=== PATIENT | female | born 1955 | race Caucasian/White ===

== ENCOUNTER 2017-07-04 11:05 | Emergency (ER) | payer BC ==
[~2017-07-04] VITALS: Ht 160 cm; Wt 72.0 kg
[2017-07-04 11:17] VITALS: BP 168/95; PULSE 81; RESP 17; TEMP 98.2
[2017-07-04 14:23] VITALS: BP 146/72; PULSE 81; RESP 18; O2SAT 98
--- NOTE | 2017-07-04 14:43 | PD ---
HPI Chief Complaint: Neuro Symptoms/ Deficits Time Seen by Provider: 14:16 Travel History International Travel<30 days: No Contact w/Intl Traveler<30days: No Traveled to known affect area: No History of Present Illness HPI The patient was seen and examined in the presence of the nurse. Patient complains of a room spinning dizziness that occurs when she moves her head in either direction. Started last night. She also complains of posterior headache. No injury or thunderclap onset. No fever. She woke up this morning and the dizziness was still present. She went to [facility]. She had a negative CT of the brain. She says that they were going to hospitalized her for her dizziness and she decided she would rather come here instead. So she signed out AGAINST MEDICAL ADVICE. Symptom severity is moderate. Duration one day. No alleviating factors. No exacerbating factors. PFSH Past Medical History Anxiety: Yes Depression: Yes Hypertension: Yes Influenza Vaccination: No ?: Not Past Surgical History Eye Surgery: Yes (CATARACT) Social History Alcohol Use: Yes (OCCASIONALLY) Tobacco Use: No Substance Use: No Allergies-Medications (Allergen,Severity, Reaction): Coded Allergies: Penicillins (Verified Allergy, Severe, HIVES, 07/04/17) Review of Systems General / Constitutional: No: Fever Eyes: No: Visual changes HENT: Positive: Headaches, Vertigo Cardiovascular: No: Chest Pain or Discomfort Respiratory: No: Shortness of Breath Gastrointestinal: No: Abdominal Pain Genitourinary: No: Dysuria Musculoskeletal: No: Pain Skin: No Rash Neurologic: Positive: Dizziness, Headache, No: Weakness Psychiatric: No: Depression Endocrine: No: Polydipsia Hematologic/Lymphatic: No: Easy Bruising Physical Exam Narrative GENERAL: Well-nourished, well-developed patient in no apparent distress. SKIN: Focused skin assessment reveals no rash and nodules. Skin is Warm and dry. HEAD: Atraumatic. Normocephalic. EYES: Pupils equal and round. No scleral icterus. No injection or drainage. ENT: No nasal bleeding or discharge. Mucous membranes pink and moist. NECK: Trachea midline. No JVD. CARDIOVASCULAR: Regular rate and rhythm. No murmur appreciated. RESPIRATORY: No accessory muscle use. Clear to auscultation. Breath sounds equal bilaterally. GASTROINTESTINAL: Abdomen soft, non-tender, nondistended. Hepatic and splenic margins not palpable. MUSCULOSKELETAL: No obvious deformities. No clubbing. No cyanosis. No edema. NEUROLOGICAL: Awake and alert. No obvious cranial nerve deficits. Motor grossly within normal limits. Normal speech. PSYCHIATRIC: Appropriate mood and affect; insight and judgment normal. Data Data Last Documented VS Vital Signs Date Time Temp Pulse Resp B/P (MAP) Pulse Ox O2 Delivery O2 Flow Rate FiO2 07/04/17 14:23 81 18 146/72 (96) 98 Room Air 07/04/17 11:17 98.2 Orders Orders Mri Brain W/O Contrast (07/04/17 ) Complete Blood Count With Diff (07/04/17 14:36) Basic Metabolic Panel (Bmp) (07/04/17 14:36) Electrocardiogram (07/04/17 ) Meclizine (Antivert) (07/04/17 14:45) Ibuprofen (Motrin) (07/04/17 17:30) Labs Laboratory Tests Test 07/04/17 14:54 White Blood Count 4.0 TH/MM3 Red Blood Count 4.72 MIL/MM3 Hemoglobin 15.4 GM/DL Hematocrit 44.9 % Mean Corpuscular Volume 95.0 FL Mean Corpuscular Hemoglobin 32.6 PG Mean Corpuscular Hemoglobin Concent 34.3 % Red Cell Distribution Width 13.2 % Platelet Count 199 TH/MM3 Mean Platelet Volume 8.6 FL Neutrophils (%) (Auto) 74.7 % Lymphocytes (%) (Auto) 18.1 % Monocytes (%) (Auto) 6.0 % Eosinophils (%) (Auto) 0.6 % Basophils (%) (Auto) 0.6 % Neutrophils # (Auto) 3.0 TH/MM3 Lymphocytes # (Auto) 0.7 TH/MM3 Monocytes # (Auto) 0.2 TH/MM3 Eosinophils # (Auto) 0.0 TH/MM3 Basophils # (Auto) 0.0 TH/MM3 CBC Comment DIFF FINAL Differential Comment Blood Urea Nitrogen 10 MG/DL Creatinine 0.58 MG/DL Random Glucose 98 MG/DL Calcium Level 8.7 MG/DL Sodium Level 143 MEQ/L Potassium Level 3.9 MEQ/L Chloride Level 109 MEQ/L Carbon Dioxide Level 24.5 MEQ/L Anion Gap 10 MEQ/L Estimat Glomerular Filtration Rate 106 ML/MIN [facility] [place] Medical Decision Making Medical Screen Exam Complete: Yes Emergency Medical Condition: Yes Medical Record Reviewed: Yes Differential Diagnosis Positional vertigo, cerebellar stroke, brain tumor Narrative Course I have reviewed the patient's electronic medical record. Reviewed her CT results from this morning which was negative I do not see any objective neurologic deficit. Gave her dose of meclizine Labs sent I have ordered brain MRI to rule out cerebellar stroke or brain tumor Labs are normal MRI is reviewed with her. There is no stroke or tumor. There is punctate white dots of unclear significance. I recommended that she discuss this with her physician and suggested neurology follow-up as well I do not think hospitalization would be helpful at this point. Instructed use meclizine as needed Diagnosis Primary Impression: Benign positional vertigo Qualified Codes: H81.10 - Benign paroxysmal vertigo, unspecified ear Additional Impression: Headache Qualified Codes: R51 - Headache Additional Instructions: Follow-up with primary care and neurology Discussed her MRI results Change positions slowly Consider meclizine which is [id number] Med/Other Pt SpecificInfo: Other Disposition: 01 DISCHARGE HOME Condition: Stable Raad May MD July 04, 2017 14:43
[2017-07-04] MEDS ORDERED: MECLIZINE HCL 25 MG TAB PO ONE (14:45)
[2017-07-04 15:26] LABS: BASOPHIL % 0.6 % (0.0-2.0); EOSINOPHIL % 0.6 % (0.0-4.0); HEMATOCRIT 44.9 % (35.0-46.0); HEMOGLOBIN 15.4 GM/DL (11.6-15.3); LYMPH % 18.1 % (9.0-44.0); LYMPHOCYTE # 0.7 TH/MM3 (1.0-4.8); MEAN CORPUSCULAR HEMOGLOBIN 32.6 PG (27.0-34.0); MEAN CORPUSCULAR HGB CONC 34.3 % (32.0-36.0); MEAN PLATELET VOLUME 8.6 FL (7.0-11.0); MONOCYTE # 0.2 TH/MM3 (0-0.9); NEUT % 74.7 % (16.0-70.0); PLATELET COUNT 199 TH/MM3 (150-450); RED BLOOD COUNT 4.72 MIL/MM3 (4.00-5.30); RED CELL DISTRIBUTION WIDTH 13.2 % (11.6-17.2)
[2017-07-04 15:56] LABS: BICARBONATE 24.5 MEQ/L (21.0-32.0); CALCIUM 8.7 MG/DL (8.5-10.1); CREATININE 0.58 MG/DL (0.50-1.00)
--- NOTE | 2017-07-04 16:14 | RADRPT ---
EXAM DATE/TIME: 07/04/2017 15:52 [place] COMPARISON: No previous studies available for comparison. INDICATIONS : CVA. Vertigo. MEDICAL HISTORY : Hypertension. SURGICAL HISTORY : Cataract. ENCOUNTER: Initial ACUITY: 2 day PAIN SCORE: 0/10 LOCATION: head TECHNIQUE: Multiplanar, multisequence MRI of the brain was performed without contrast. FINDINGS: CEREBRUM: The ventricles are normal for age. No evidence of midline shift, mass lesion, hemorrhage or acute in farction. No extraaxial fluid collections are seen. The pituitary gland and suprasellar cistern are normal in configuration. WHITE MATTER: Scattered punctate foci of white matter T2 prolongation, mainly in the high convexity frontal regions . POSTERIOR FOSSA: The cerebellum and brainstem are intact. The 4th ventricle is midline. The cerebellopontine angle is unremarkable. The cerebellar tonsils are normal in position. DIFFUSION IMAGING: No focal areas of restricted diffusion are seen. No evidence of acute infarction. EXTRACRANIAL: The visualized portions of the orbits and paranasal sinuses are unremarkable. CONCLUSION: Multiple tiny areas of focal white matter signal change are nonspecific. No other acute findings. No evidence of acute infarction. Delfin Keene MD on July 04, 2017 at 16:10 Board Certified Radiologist. This report was verified electronically.
[2017-07-04] MEDS ORDERED: IBUPROFEN 400 MG TAB PO ONE (17:30)
--- NOTE | 2017-07-05 18:34 | EKG ---
Date Performed: 07/04/2017 Time Performed: 14:18:06 PTAGE: 61 years EKG: Sinus rhythm NORMAL ECG NO PREVIOUS TRACING DOCTOR: Wiliam Calderon Interpretating Date/Time 07/05/2017 18:32:34
== END 2017-07-04 19:04 | disposition home or self-care (01) ==
LOC: NEPC 11:05
DX: H81.10 Benign paroxysmal vertigo, unspecified ear (principal); R51 Headache; I10 Essential (primary) hypertension
CPT/HCPCS: 70551; 80048; 85025; 93005; 99284